=== PATIENT | male | born 1950 ===

== ENCOUNTER 2017-01-26 08:55 | Day surgery (SDC) | payer OTHER ==
[2017-01-25 11:46] VITALS: BMI 34.4
[2017-01-26] MEDS ORDERED: Propofol 10 mg/ml Inj (20 ML) ONE (10:57)
[2017-01-26] MEDS ORDERED: Midazolam 2 MG/2 ML VIAL ONE (10:57)
[2017-01-26] MEDS ORDERED: Iodixanol 320 MG/ML 200 ML BOTTLE IV ONE (11:02)
[2017-01-26 15:32] VITALS: RESP 18
[2017-01-26 18:03] VITALS: BP 116/76; PULSE 72; TEMP 98; O2SAT 100
--- NOTE | 2017-01-27 11:12 | VAS ---
DATE: 01/26/2017 INDICATIONS: Mr. Keith Martinez is a [id number] with past medical history significant for ischemic cardiomyopathy, ejection fraction of 20%-25%, coronary artery disease, status post PTCA stenting, hypertension, hyperlipidemia, and obesity who was referred to me by Dr. Alba for evaluation of symptoms of worsening claudication of left lower extremity. The patient underwent a diagnostic peripheral angiogram for evaluation of symptoms of claudication with severely decreased and abnormal arterial Dopplers. PROCEDURE PERFORMED: 1. Abdominal aortogram and bilateral iliac runoff. 2. Selective bilateral iliofemoral angiogram runoff. 3. RECRUITER MANAGER stenting of left external iliac, common femoral artery with use of 7.0 x 29 mm balloon expandable stent. 4. A 6-Grenadian right femoral arterial access, Mynx closure device for hemostasis. TECHNIQUES OF PROCEDURE: After obtaining informed consent, the patient was brought to the cardiac catheterization in post-absorptive, non-sedated state. The patient was prepped and draped in the usual sterile fashion. A 2% lidocaine was used for infiltration anesthesia. Using modified Seldinger technique, 5-Grenadian sheath was introduced into right femoral artery and right iliofemoral angiogram runoff was performed. Subsequently over a J-wire, Omni Flush catheter was advanced to the abdominal aorta. Abdominal aortogram bilateral iliac runoff was performed. Subsequently, the catheter was crossed across the aortoiliac bifurcation to the left common iliac artery and the selective angiogram of the left iliofemoral system was performed. ANGIOGRAPHIC FINDINGS: Right external iliac and common iliac is patent, common femoral artery patent, SFA ostial 50% stenosis, profunda femoris is patent, and mild mid SFA stenosis 40%-50% with 3-vessel runoff [id number]. LEFT LOWER EXTREMITY ANGIOGRAPHIC FINDINGS: Left lower extremity showed left common iliac patent. External iliac has moderate 50% stenosis, common femoral 100% stump occluded with reconstitution distally via the collateral very significantly reduced [place]-0 to 1 flow noted. TECHNIQUES OF INTERVENTION: After reviewing the above angiographic finding, it was decided to further interrogate the occlusion, which seemed to be secondary to a recent Perclose closure device. A 0.35 guidewire was carefully negotiated through the occlusion and it was dilated with a small 4-0 balloon. Subsequent angiogram showed good distal flow at this point. The lesion was then dilated with a small 4.0 balloon and the decision was made to proceed with stenting of the occluded site secondary to significant multiple comorbid lesion, which was occluded and the patient is not being a surgical candidate. The patient underwent successful angioplasty and stenting of the femoral artery with 7.0 x 29 mm stent. Subsequent pullback gradients were calculated, which were essentially negligible. IMPRESSION: Successful RECRUITER MANAGER stenting of the left common femoral artery with use of 7.0 x 29 mm balloon expandable stent. RECOMMENDATIONS: Continue the patient on dual antiplatelet therapy for at least a year, guideline-directed medical therapy for coronary artery disease and peripheral arterial disease . Thank you Dr. Alba for letting me to participate in the care of your patient. Pascual Ellis MD cc: Frederick Alba MD MTDD
== END 2017-01-26 18:05 | disposition home or self-care (01) ==
LOC: C.CATHLAB 08:55
PROVIDERS: ATTEND Internal Medicine Interventional Cardiology
DX: I70.212 Atherosclerosis of native arteries of extremities with intermittent claudication, left leg (principal); I73.9 Peripheral vascular disease, unspecified; I25.5 Ischemic cardiomyopathy; I25.10 Atherosclerotic heart disease of native coronary artery without angina pectoris; I10 Essential (primary) hypertension; E78.5 Hyperlipidemia, unspecified; I70.92 Chronic total occlusion of artery of the extremities
CPT/HCPCS: 37226; 82948; 94770; J1644; J2001; J2250; J2704; J3010; Q9966

== ENCOUNTER 2017-07-18 10:54 | Day surgery (SDC) | payer OTHER ==
[2017-07-14 09:10] VITALS: BMI 34.4
[2017-07-18] MEDS ORDERED: Midazolam 2 MG/2 ML VIAL ONE (14:43)
[2017-07-18] MEDS: Sodium Chloride 0.9% 1,000 ML IV ONE (18:55)
[2017-07-18] MEDS ORDERED: Sodium Chloride 0.45% 1,000 ML IV SCH (21:00)
[2017-07-18 21:28] VITALS: BP 115/55; PULSE 80; RESP 12; TEMP 97.7; O2SAT 99
== END 2017-07-18 21:30 | disposition home or self-care (01) ==
LOC: C.CATHLAB 10:54
PROVIDERS: ATTEND Internal Medicine Cardiovascular Disease
DX: I70.213 Atherosclerosis of native arteries of extremities with intermittent claudication, bilateral legs (principal); I25.10 Atherosclerotic heart disease of native coronary artery without angina pectoris; G47.33 Obstructive sleep apnea (adult) (pediatric); E11.9 Type 2 diabetes mellitus without complications; I42.9 Cardiomyopathy, unspecified